=== PATIENT | female | born 1965 | race Caucasian/White ===

== ENCOUNTER 2022-10-06 08:39 | Day surgery (SDC) | payer MEDICAID, SELFPAY ==
--- NOTE | 2022-10-06 | IMM_PTH ---
PATIENT: NITISH CALLAHAN LOC: [facility] [place] U#:[id number] AGE/SX: 57/F ROOM: RE10/06/[address]: Dr. Indra Freire MD : 1965 BED: DIS: 10/06/2022 SPEC #: [id number] RECD: 10/10/22 14:41 STATUS: JULIET REQ #: [id number] KIKI: 10/06/22 00:[address]: Indra Freire DEPT: IMMUNOHISTOCHEMISTRY RECD BY: Mikayla Hughes ENTERED: 10/10/22 14:43 SP TYPE: IMMUNO OTHR DR: Dr. Kemar Sepulveda MD Tissues: Left breast, NOS Procedures: CK5-6 (add) CK7 (add) CK8 (add) KI-67 (add) MAMM (add) 34BE12 (add) Pankeratin (initial) GATA3 (add) P40 (add) PHYSICIAN & INSTITUTION [place] [id number] SPECIMEN INFORMATION: Tissue Source: Left breast Clinical Info: Left breast mass lower outer quadrant Specimen Number: [id number] #4 CPT code: 06646, 57143 x8 METHODOLOGY: Deparaffinized sections of prefer/formalin-fixed tissue or PAP/DQ stained slides are incubated with monoclonal/polyclonal antibodies/oligonucleotide probes. Localization is made via biotin free immunoperoxidase method. Appropriate controls are performed and reacted as expected. Results on target cell population are indicated in the following table: RESULTS: ANTIBODY / CLONE RESULT Block 4 Mammaglobin (31A5) negative GATA3 (L50-823) negative AE1-3 (AE1/AE3/PCK26) positive CK7 (OV-TL12/30) positive, rare cell CK8 (92sxqvT41) negative 34BE12 (34BE12) positive CK5-6 (D5 & 1684) positive P40 (BC28) positive Ki-67 (30-9) positive, 35% These tests were developed and their performance characteristics determined by [facility]. They may not have been cleared or approved by the U.S. Food and Drug Administration. The FDA has determined that such clearance or approval is not necessary. The above immunohistochemical/dualISH markers are ordered and reviewed by the Pathologist. 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 AM:pop 10/11/2022 Case has been reviewed in consultation with Dr. Ramirez who concurs with the above diagnosis. IDC:SJ
[2022-10-06 09:20] VITALS: BP 155/93; PULSE 81; RESP 17; TEMP 36.9; O2SAT 95; BMI 44.4
--- NOTE | 2022-10-06 09:54 | PCM.HP.BLA ---
History and Physical Date of Admission: 10/06/22 Intake Vital Signs ? 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 Indra Freire MD) Abnormal mammogram of left breast Hypertension Left breast mass Surgical History?(Updated 09/28/22 @ 13:48 by Jaqui Hidalgo) History of 2 sections History of hysterectomy Family History?(Updated 09/28/22 @ 13:53 by Jaqui Hidalgo) Father Diabetes Hypertension High cholesterol Breast cancerMother Arthritis Hypertension High cholesterol OsteoporosisBrother Colon cancerSister Cancer ?? ? multiple myeloma Social History?(Updated 09/28/22 @ 13:53 by Jaqui Hidalgo) Smoking Status:? Former smoker alcohol intake:? never substance use type:? does not use HPI HPI HPI: Patient is a 57-year-old female here with a left breast mass.? The patient reports that she has noticed this lesion in her inferior left breast for about 8 years.? She has not had any drainage from the area or redness.? She says that it is occasionally uncomfortable.? She had a biopsy performed of this area by a radiologist at another hospital. ROS General General: Yes weight change and fatigue; No appetite, colon cancer, breast cancer or weakness HEENT HEENT: No difficulty swallowing, eye injury, eye surgery, swollen glands or hoarseness Endo Endocrine: No thyroid disease, diabetes mellitus, thyroid cancer, Hair loss, heat intolerance or cold intolerance Skin Skin: No rash or changing moles Breast Breast: Yes abnormal mammogram; No left breast lump, right breast lump, nipple discharge, breast pain, abnormal US or breast enlargement Additional Details: left breast mass Musc Musculoskeletal: No back problems, arthritis, rheumatoid arthritis, gout or joint pain Cardio Cardiovascular: Yes high blood pressure; No murmur, pacemaker, heart disease, atrial fibrillation, heart attack, heart stent, palpitations, shortness of breat with exertion or chest pain Psych Psychiatric: No depression, anxiety or hearing voices Resp Respiratory: No shortness of breath, No sleep apnea, No cough, No COPD, No asthma, No emphysema and No wheezing Gastro Gastrointestinal: No abdominal pain, No nausea or vomiting, No diarrhea, No constipation, No blood in stool, No acid reflux, Yes hemorrhoids, No ulcers, No gallbladder problem and No black,tarry stools Familia Hematologic: No blood thinners, No blood disorders, No bleeding, No anemia and No blood clots Neuro Neurologic: No system reviewed and no additional complaints, except as documented, No as per HPI, No abnormal gait, No abnormal hearing, No abnormal movements, No abnormal speech, No behavioral changes, No burning sensations, No confusion, No convulsions, No disequilibrium, No dizziness, No localized weakness, No frequent falls, No headache(s), No lack of coordination, No loss of vision, No memory loss, No numbness, No other visual disturbances, No radicular pain, No restless legs, No sensory deficit, No syncope, No tingling, No tremor(s), No weakness and No other Exam Const General: cooperative Orientation: alert and oriented x3 HENMT Head: normal to inspection Neck Neck: normal visual inspection and full ROM Chest Chest palpation & inspection: normal inspection of the chest Breast Palpation: Yes breast mass lrb: Left Resp Effort & Inspection: normal respiratory effort Auscultation: clear to auscultation bilaterally Cardio Rate: regular rate Rhythm: regular rhythm GI Inspection: non-distended Palpation: soft and nontender Skin General: no rashes or lesions noted Neuro General: patient alert and patient oriented x3 Extrem General: full ROM Psych Appearance: grossly normal Mental Status: mental status grossly normal Assessment and Plan Assessment and Plan (1) Left breast mass: ?Status:?Acute ?Qualifiers: ?Breast mass location:?lower outer quadrant? Qualified Code(s):?N63.23 - Unspecified lump in the left breast, lower outer quadrant ?Plan: The patient has a left breast mass which is adherent to the skin in the lower outer quadrant of the left breast.? Ultrasound-guided biopsy was performed at an outside hospital that showed atypical squamous cell proliferation.? She was sent here for excision.? I discussed excisional biopsy of this mass with her in detail.? I discussed the risks including but not limited to bleeding, infection, need for further surgery, hematoma formation or seroma formation.? Patient understands the risks and is willing to proceed with excision of this left breast mass. Indra Freire MD Pager: [facility] [address] [place] [address], [address] [place] [address] Office: I have examined the patient and the H&P has been reviewed. There are no clinical changes since date of exam.
--- NOTE | 2022-10-06 10:15 | BR_PTH ---
PATIENT: NITISH CALLAHAN [place] [facility] [place][id number] AGE/SX: 57/F ROOM: RE10/06/[address]: Dr. Indra Freire MD : 1965 BED: DIS: 10/06/2022 SPEC #: [id number] RECD: 10/06/22 13:02 STATUS: JULIET MALI #: [id number] KIKI: 10/06/22 10:[address]: Indra Freire DEPT: SURGICAL PATHOLOGY RECD BY: Sade Lund ENTERED: 10/09/22 11:20 SP TYPE: MAMOPLASTY OTHR DR: Dr. 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 AM:pop 10/19/2022 COMMENT The case is seen in consultation with Dr. Martinez of [employer]. The complete consultative report is viewable in EMR. Clinical correlation is suggested. Immunohistochemistry ([id number]) supports the above diagnosis. Case has been reviewed in consultation with Dr. Ramirez who concurs with the above diagnosis. IDC:KATERINA MICROSCOPIC DESCRIPTION Slides are reviewed. GROSS DESCRIPTION Received in fixative is one container labeled with the patient's name and designated left breast mass biopsy. The specimen consists of a piece of yellow adipose tissue measuring 3.5 x 2 x 1.5 cm. A piece of skin is noted at one edge measuring 1.5 x 0.5 cm. Sections reveal a cyst filled with cheesy material measuring 1.5 cm in greatest dimension. The entire specimen is submitted in five cassettes. / KATERINA:pop 10/09/2022 TC:5 CPT: 73887
[2022-10-06] MEDS: Clindamycin 900 MG/50 ML BAG 75 MG IV (10:19)
[2022-10-06 10:51] VITALS: BP 114/74; BP 155/93; PULSE 86; RESP 18; TEMP 36.6; O2SAT 93
[2022-10-06 10:55] VITALS: BP 120/75; BP 155/93; PULSE 80; RESP 18; O2SAT 93
[2022-10-06 11:01] VITALS: BP 132/84; BP 155/93; PULSE 77; RESP 18; O2SAT 93
--- NOTE | 2022-10-06 11:07 | PCM.OPRPT ---
Report of Operation Date of Procedure: 10/06/22 Pre-Operative Diagnosis: Squamous atypia of the left breast Post-Operative Diagnosis: Same Surgery/Procedure Performed:: Excisional biopsy of left breast mass Specimen's removed: Left breast mass Description of Procedure: Patient was brought back the operating room and MAC anesthesia was induced. The left breast was prepped and draped in usual sterile fashion. An elliptical incision was marked and then injected with local anesthetic. Incision was made around the lesion and using electrocautery the lesion was dissected free from the surrounding tissue. The lesion and the overlying skin were sent for pathology. The cavity was irrigated and suctioned dry and checked for hemostasis and hemostasis was obtained using electrocautery. The incision was closed with interrupted 3-0 Vicryl suture and Dermabond. Patient tolerated the procedure well and was brought to PACU in stable condition. Admit VTE Documentation VTE Mechan Device Prophylaxis: SCD's
[2022-10-06 11:08] VITALS: BP 131/81; BP 155/93; PULSE 74; RESP 18; TEMP 36.2; O2SAT 94
--- NOTE | 2022-10-06 11:09 | DCINST_ITS ---
Discharge Instructions Procedure Breast Surgery Diet Discharge Diet: No restrictions Activity Discharge Activity: Return to Normal Activity, May Not Drive (for 2-3 days or while taking narcotic pain medications.) and May Shower May shower in (days): 1 Lifting Restrictions: 20 lbs for 1 week Dressing / Incision Call your doctor if your incision/area has: Continuous Slow Oozing, Sudden Increased Bleeding, Increased Pain/ Swelling, Increased Redness, Foul Smelling Discharge and Swelling at the incision site Call your doctor if you observe: Fever of 101 or Higher Suture Line Care: Avoid Pulling/Pushing and Avoid Pinching/Bending Cleanse incision/area with: Soap & Water Follow Up Care Please Follow Up With: Indra Freire MD When: Please call to schedule 2 week follow up appointment. [phone] Test Results: Test results from this visit will be discussed in further detail at your follow- up appointment, if applicable. Discharge Plan Admission Attending Provider: Indra Freire Primary Care Provider: Kemar Sepulveda Instructions Additional Instructions / Restrictions: Alternating ibuprofen and Tylenol for pain Discharge Orders/Prescriptions Prescriptions: No Action atenolol-chlorthalidone 100-25 mg tablet 0.5 tab PO DAILY pravastatin 40 mg tablet 40 mg PO DAILY Referrals / Follow Up: Kemar Sepulveda MD [Primary Care Provider] - Disposition Disposition (needs filled in before D/C Order can be placed): Home, Self Care
[2022-10-06 11:35] VITALS: BP 155/93
== END 2022-10-06 11:47 | disposition home or self-care (01) ==
LOC: SDC 08:45 → AC 08:46
PROVIDERS: PCP Family Medicine; Referring Provider Surgery; Visit Provider Surgery
PROC: (CPT 19083; principal; 2022-10-06 10:00)
DX: N60.02 Solitary cyst of left breast (principal); I10 Essential (primary) hypertension; E78.00 Pure hypercholesterolemia, unspecified; Z79.899 Other long term (current) drug therapy; Z87.891 Personal history of nicotine dependence
CPT/HCPCS: 19120; 00400; 88305; 88307; 88341; 88342; J7120; J2405